=== PATIENT | female | born 1960 | race Caucasian/White ===

== ENCOUNTER 2019-10-18 12:48 | Outpatient (CLI) | payer OTHER | END 2019-10-18 23:59 | disposition home or self-care (01) | LOC: RAD 12:48 | PROVIDERS: ATTEND Nurse Practitioner Family | DX: K21.9 Gastro-esophageal reflux disease without esophagitis (principal); R13.14 Dysphagia, pharyngoesophageal phase; Z88.2 Allergy status to sulfonamides; Z88.8 Allergy status to other drugs, medicaments and biological substances; Z91.018 Allergy to other foods; Z79.899 Other long term (current) drug therapy | CPT/HCPCS: 74230 ==

== ENCOUNTER 2022-01-02 07:49 | Day surgery (SDC) | payer OTHER ==
[2021-12-24 16:16] LABS: BASOPHILS % (AUTO) 0.4 % (0-1); EOSINOPHILS # (AUTO) 0.1 X10'3 (0-0.9); EOSINOPHILS % (AUTO) 1.9 % (0-6); LYMPHOCYTES # (AUTO) 1.8 X10'3 (1.1-4.8); MEAN CORPUSCULAR HEMOGLOBIN 32.5 PG (27.0-31.0); MEAN CORPUSCULAR HGB CONC 33.9 g/dL (33.0-36.5); MEAN CORPUSCULAR VOLUME 95.8 FL (78-98); MEAN PLATELET VOLUME 7.2 FL (7.4-10.4); MONOCYTES # (AUTO) 0.6 X10'3 (0-0.9); MONOCYTES % (AUTO) 12.7 % (2-12); NEUTROPHILS # (AUTO) 2.5 X10'3 (1.8-7.7); PRE OP HEMATOCRIT 37.3 % (35.0-45.0); PRE OP HEMOGLOBIN 12.7 g/dL (12.0-16.0); PRE OP PLATELET COUNT 305 X10'3 (140-440); RED BLOOD COUNT 3.89 X10'6 (4.20-5.60); RED CELL DISTRIBUTION WIDTH 13.5 % (11.5-14.5)
[2021-12-24 16:31] LABS: ALBUMIN/GLOBULIN RATIO 1.3 (1.1-1.5); ALKALINE PHOSPHATASE 99 IU/L (46-116); BLOOD UREA NITROGEN 9 MG/DL (7-18); BUN/CREATININE RATIO 10.7 (6.6-38.0); CALCIUM 9.3 MG/DL (8.5-10.1); CHLORIDE 101 MMOL/L (99-107); CREATININE 0.84 MG/DL (0.40-0.90); PRE OP ALT 27 U/L (30-65); PRE OP ANION GAP 8 (8-16); PRE OP AST 25 U/L (10-37); PRE OP BILIRUB, TOTAL 0.2 MG/DL (0.0-1.0); PRE OP GLUCOSE 156 MG/DL (70-104); PRE OP POTASSIUM 3.7 MMOL/L (3.4-5.1); PRE OP SODIUM 137 MMOL/L (135-145); TOTAL CARBON DIOXIDE 28.4 MMOL/L (24-32); TOTAL PROTEIN 7.2 G/DL (6.4-8.2); eGFR 69 ML/MIN
[~2022-01-02] VITALS: Ht 175.3 cm; Wt 67.1 kg
[2022-01-02] VITALS (14 sets, daily range): BP systolic 115–154; BP diastolic 66–93
[2022-01-02] MEDS: ceFAZolin inj. 2,000 MG in dextrose 5%-water 100 ML IV ONE ×2 (05:30→08:54)
[~2022-01-02 07:49] MED LIST: BUPR-317 PO; ESTR10TA4 VG; MELO-102 PO; VALA500T41 PO; famotidine 20mg tablet PO ONE; ringers solution, lacted 1,000 ML IV SCH
[2022-01-02] MEDS ORDERED: LIDOcaine 0.5% (5mg/ml) 50ml vial ONE (10:47)
[2022-01-02] MEDS ORDERED: fentaNYL/PF 50MCG/1 ML 2ML syringe ONE ×2 (11:39→12:25)
[2022-01-02] MEDS ORDERED: midazolam 1 mg/ML 2ml injection ONE ×2 (11:39→12:02)
[2022-01-02] MEDS ORDERED: ondansetron/PF 4mg/2ml inj ONE (11:40)
[2022-01-02] MEDS ORDERED: BUPIVAcaine/PF 2.5mg/ml (0.25%) 10ml vial ONE ×2 (11:47→12:53)
[2022-01-02] MEDS ORDERED: ketamine 50mg/5ml syringe ONE (12:21)
[2022-01-02] MEDS ORDERED: propofol inj 20 ML IV ONE (12:57)
--- NOTE | 2022-01-02 13:03 | NUR ---
Received from OR via [facility], accompanied by Anesthesiologist DR LOGAN and report given by Anesthesiologist AND DIRECTOR INDEPENDENT. PT AWAKE, LEFT HAND W/ROSY WRAP COVERING FROM ABOVE FINGERS TO MID FOREARM INCISION/DRSG/SPLINT CDI, FINGERS PWD, NURSE FIRST AID 1-2 SECONDS. Addendum: 01/02/22 at 1323 by Sharri Isabel RN Amended: Links added.
[2022-01-02] MEDS ORDERED: meperidine/PF 25mg/ml syringe ONE (13:27)
[2022-01-02] MEDS ORDERED: morphine 4 MG/ML inj SYRINge ONE ×3 (13:28→13:50)
[2022-01-02] MEDS ORDERED: ringers solution, lacted 1,000 ML IV SCH (13:50)
[2022-01-02] MEDS ORDERED: HYDROmorphone/PF 0.2 MG/ML SYRINGE IV PRN ×2 (13:50)
[2022-01-02] MEDS ORDERED: morphine 2 MG/ML inj. syringe IV PRN (13:50)
[2022-01-02] MEDS ORDERED: ondansetron/PF 4mg/2ml inj IV PRN (13:50)
[2022-01-02] MEDS ORDERED: morphine 4 MG/ML inj SYRINge IV PRN (13:50)
[2022-01-02] MEDS ORDERED: acetaminophen 1,000mg/100ml IV 100 ML IV ONE (14:10)
[2022-01-02] MEDS ORDERED: HYDROcodone/acetaminophen 10/325mg tab PO ONE (14:10)
--- NOTE | 2022-01-02 15:03 | NUR ---
PTS PAIN NOW TOLERABLE AND SHE STATES IS MUCH IMPROVED, PT ABLE TO AMBULATE SAFELY. PT VOIDED. D/C INSTRUCTIONS GIVEN AND GONE OVER W/PT WHO VERBALIZED UNDERSTANDING. PT D/CD TO HOME VIA W/C TO PRIVATE VEHICLE W/O INCIDENT. Addendum: 01/02/22 at 1542 by Sharri Isabel RN Amended: Links added.
== END 2022-01-02 15:03 | disposition home or self-care (01) ==
LOC: PAS 07:49
PROVIDERS: ATTEND Orthopaedic Surgery Hand Surgery
DX: M67.442 Ganglion, left hand (principal); M19.032 Primary osteoarthritis, left wrist; M65.842 Other synovitis and tenosynovitis, left hand; M81.0 Age-related osteoporosis without current pathological fracture; G43.909 Migraine, unspecified, not intractable, without status migrainosus; Z79.899 Other long term (current) drug therapy; Z90.710 Acquired absence of both cervix and uterus; Z98.890 Other specified postprocedural states; D64.9 Anemia, unspecified; M19.90 Unspecified osteoarthritis, unspecified site; Z88.8 Allergy status to other drugs, medicaments and biological substances; Z88.6 Allergy status to analgesic agent; Z82.2 Family history of deafness and hearing loss; Z88.2 Allergy status to sulfonamides
CPT/HCPCS: 25116; 25312; 25447; 36415; 80053; 82948; 85025; 87811; 93005; J0131; J2175; J2250; J2270; J2405; J2704; J3010; J3490; J7030; J7040; J7120; Z7506; Z7508; Z7512; A4215; A4615; A7000; J0690; J7060